=== PATIENT | female | born 1980 | race Caucasian/White ===

== ENCOUNTER → 2018-01-25 | Outpatient (CLI) | payer BC ==
[2005-10-25 08:08] VITALS: TEMP 98
[~2018-01-25] MED LIST: PRENATAL VITAMI1 TA5 PO
== END ==
LOC: COL.CARD 07:53
DX: R55 Syncope and collapse (principal)

== ENCOUNTER → 2018-03-03 | Outpatient (REF) ==
[2005-10-25 08:08] VITALS: TEMP 98
== END ==
LOC: ZLAB.WCH 11:35
DX: Z01.89 Encounter for other specified special examinations (principal)

== ENCOUNTER → 2018-03-08 | Outpatient (REF) ==
[2005-10-25 08:08] VITALS: TEMP 98
[2018-03-08 09:25] LABS: THYROID STIMULATING HORMONE 2.31 uIU/mL (0.465-4.680)
== END ==
LOC: ZLAB.WCH 08:39
PROVIDERS: Physician Assistant
DX: Z01.89 Encounter for other specified special examinations (principal)

== ENCOUNTER → 2018-03-13 | Outpatient (CLI) | payer BC ==
[2005-10-25 08:08] VITALS: TEMP 98
== END ==
LOC: COL.CARD 13:55
DX: R55 Syncope and collapse (principal)

== ENCOUNTER 2018-06-13 12:46 | Inpatient (IN) | payer BC ==
[2018-06-13] VITALS (37 sets, daily range): BP systolic 89–163; BP diastolic 53–99; PULSE 69–118; TEMP 97.9–99.3
[~2018-06-13] VITALS: Ht 167.6 cm; Wt 86.4 kg
[2018-06-13] MEDS ORDERED: NATURAL IRON65 MG (13:08)
[2018-06-13] MEDS ORDERED: ASPIRIN 81M81 MG/TA2 PO (13:09)
[2018-06-13] MEDS ORDERED: CALCIUM CARBON650 M2 (13:09)
[2018-06-13 14:26] LABS: BASO % 0.3 % (0.0-2.0); EOS # 0.1 (0.0-0.7); EOS % 1.6 % (0-4.0); GRAN # 3.5 (1.4-6.5); GRAN % 57.2 % (42.2-75.2); HEMOGLOBIN 12.5 g/dl (12.5-16.0); LYMPH % 33.4 % (20.0-51.0); MEAN CELL VOLUME 93 fl (80.0-100.0); MEAN CORPUSCULAR HEMOGLOBIN 33 pg (27.0-31.0); MEAN CORPUSCULAR HGB CONC 36 g/dl (33.0-37.0); MEAN PLATELET VOLUME 10.6 fl (7.4-10.4); MONO # 0.4 (0.1-0.6); PLATELET COUNT 204 K/mm3 (130-400); RED BLOOD COUNT 3.76 M/mm3 (4.10-5.30); REDCELL DISTRIBUTION WIDTH-CV 12.7 % (11.5-14.5)
[2018-06-14] VITALS: BP 141/72; PULSE 82
[2018-06-14 01:00] VITALS: BP 142/73; PULSE 80; TEMP 98.2
[2018-06-14 04:00] VITALS: BP 138/78; PULSE 60; TEMP 98.6
[2018-06-14 08:42] VITALS: BP 136/80; PULSE 59; TEMP 97.2
[2018-06-14] MEDS ORDERED: MOTRIN 600600 MG/TAB PO (10:31)
[2018-06-14] MEDS ORDERED: PERCOCET 325 MG1 TA2 PO (10:31)
[2018-06-14 16:20] VITALS: BP 149/88; PULSE 70; TEMP 97.5
[2018-06-14 19:20] VITALS: BP 142/81; PULSE 66; TEMP 98.5
[2018-06-15 07:13] VITALS: BP 154/93; PULSE 60
== END 2018-06-15 10:20 | disposition home or self-care (01) | DRG 807 ==
LOC: LDRO 12:46 → LDR 12:55 → OB 06-14 00:10
PROVIDERS: Obstetrics & Gynecology
PROC: 10E0XZZ Delivery of Products of Conception, External Approach (ICD-10-PCS; principal; 2018-06-13)
PROC: 0KQM0ZZ Repair Perineum Muscle, Open Approach (ICD-10-PCS; 2018-06-13)
DX: O70.1 Second degree perineal laceration during delivery (principal); Z37.0 Single live birth; Z3A.38 38 weeks gestation of pregnancy; O69.81X0 Labor and delivery complicated by cord around neck, without compression, not applicable or unspecified; O36.63X0 Maternal care for excessive fetal growth, third trimester, not applicable or unspecified
CPT/HCPCS: J2590; J7120